=== PATIENT | female | born 1985 | race Caucasian/White ===

== ENCOUNTER 2025-01-14 19:06 | Emergency (ER) | payer BC ==
[~2025-01-14] VITALS: Ht 154.9 cm; Wt 112.5 kg
[2025-01-14 19:20] VITALS: PULSE 116; RESP 18; TEMP 98.2
[2025-01-14] MEDS ORDERED: LIDOCAINE HCL 1% 30ML-PF VIAL ONE (19:58)
[2025-01-14] MEDS: LIDOCAINE HCL 1% LOCAL INJ 20 ML VIAL INJ ONE ×2 (20:01→21:13)
[2025-01-14] MEDS: DIPHTH,PERTUSS(ACELL),TET VAC 0.5 ML SYRINGE IM ONE (21:01)
[2025-01-14 21:10] VITALS: BP 160/103; PULSE 103; RESP 18; TEMP 98.2; O2SAT 99
== END 2025-01-14 21:10 | disposition home or self-care (01) ==
LOC: FSED 19:24
DX: S61.223A Laceration with foreign body of left middle finger without damage to nail, initial encounter (principal); W26.8XXA Contact with other sharp object(s), not elsewhere classified, initial encounter; Y92.89 Other specified places as the place of occurrence of the external cause
CPT/HCPCS: 90471; 90714; 99282; J2003